=== PATIENT | female | born 1970 | race Caucasian/White ===

== ENCOUNTER 2017-10-10 12:35 | Emergency (ER) | payer OTHER ==
[~2017-10-10] VITALS: Ht 162.6 cm; Wt 66.2 kg
[~2017-10-10 12:35] MED LIST: BACTRIM DS TAB1 EACH PO; BUPROPION XL300 MG PO; BUTALB-ACETAMI1 EACH PO; CETIRIZINE HCL10 MG PO; CHLORPROMAZINE50 MG PO; LAMOTRIGINE200 MG PO; NORCO 5-325 TA1 EACH PO; TEMAZEPAM30 MG PO
[2017-10-10] MEDS ORDERED: NAPROXEN500 MG PO (16:54)
[2017-10-10] MEDS ORDERED: ONDANSETRON HCL8 MG SL (16:54)
== END 2017-10-10 17:01 | disposition home or self-care (01) ==
LOC: ED 12:35
DX: N20.0 Calculus of kidney (principal); G43.909 Migraine, unspecified, not intractable, without status migrainosus; Z90.49 Acquired absence of other specified parts of digestive tract; Z79.899 Other long term (current) drug therapy
CPT/HCPCS: 74176; 80053; 81001; 83690; 84703; 85025; 96374; 96375; 99284; J1200; J1885; J2405

== ENCOUNTER 2019-08-28 19:38 | Emergency (ER) | payer OTHER ==
[~2019-08-28] VITALS: Ht 162.6 cm; Wt 66.4 kg
[~2019-08-28 19:38] MED LIST changes: +NAPROXEN500 MG PO; +ONDANSETRON HCL8 MG SL
[2019-08-28] MEDS ORDERED: AMOXICILLIN500 MG PO (23:43)
== END 2019-08-29 00:01 | disposition home or self-care (01) ==
LOC: ED 19:38
DX: H92.03 Otalgia, bilateral (principal); J02.9 Acute pharyngitis, unspecified; Z79.899 Other long term (current) drug therapy; G43.909 Migraine, unspecified, not intractable, without status migrainosus
CPT/HCPCS: 87081; 87880; 99283

== ENCOUNTER 2020-11-12 17:07 | Emergency (ER) | payer OTHER ==
[~2020-11-12] VITALS: Ht 162.6 cm; Wt 66.4 kg
[~2020-11-12 17:07] MED LIST changes: +AMOXICILLIN500 MG PO
[2020-11-12] MEDS ORDERED: DICYCLOMINE HCL20 MG PO (18:56)
[2020-11-12] MEDS ORDERED: ZOFRAN4 MG PO (18:56)
== END 2020-11-12 19:10 | disposition home or self-care (01) ==
LOC: ED 17:07
DX: K52.9 Noninfective gastroenteritis and colitis, unspecified (principal); Z20.822 Contact with and (suspected) exposure to COVID-19; G43.909 Migraine, unspecified, not intractable, without status migrainosus
CPT/HCPCS: 80053; 83735; 84703; 85025; 99284; C9803; U0003

== ENCOUNTER 2021-02-19 20:45 | Emergency (ER) | payer OTHER ==
[~2021-02-19] VITALS: Ht 162.6 cm; Wt 61.4 kg
[~2021-02-19 20:45] MED LIST changes: +DICYCLOMINE HCL20 MG PO; +ZOFRAN4 MG PO
== END 2021-02-19 22:57 | disposition home or self-care (01) ==
LOC: ED 20:45
DX: U07.1 COVID-19 (principal)
CPT/HCPCS: 71045; 99283-25; C9803; U0003

== ENCOUNTER 2021-10-14 15:48 | Emergency (ER) | payer OTHER ==
[~2021-10-14] VITALS: Ht 162.6 cm; Wt 62.7 kg
[2021-10-14] MEDS ORDERED: OMEPRAZOLE20 MG PO (17:15)
[2021-10-14] MEDS ORDERED: ANUSOL-HC30 GM PR (19:39)
== END 2021-10-14 19:52 | disposition home or self-care (01) ==
LOC: ED 15:48
DX: K64.4 Residual hemorrhoidal skin tags (principal); R10.30 Lower abdominal pain, unspecified; G43.909 Migraine, unspecified, not intractable, without status migrainosus; Z79.899 Other long term (current) drug therapy
CPT/HCPCS: 81001; 85025; 99284

== ENCOUNTER 2022-08-10 14:23 | Emergency (ER) | payer OTHER ==
[~2022-08-10] VITALS: Ht 162.6 cm; Wt 68.1 kg
[~2022-08-10 14:23] MED LIST changes: +ANUSOL-HC30 GM PR; +OMEPRAZOLE20 MG PO
--- OUTSIDE RECORDS SUMMARY | 2022-08-10 14:26 | XMS ---
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 - Patient with suicidal and/or homicidal ideations eloped. - Patient eloped with IV in place. Details: PATIENT LWBS CRITERIA MET - [facility] CARE PROVIDERS EMMA CARVER Current PHONE: Unknown Keith has no Care Guidelines for this patient. Kwesi VISIT COUNT (12 MO.) 3 [facility]. TOTAL 3 NOTE: Visits indicate total known visits. ED/UCC VISIT TRACKING (12 MO.) 08/10/2022 14:24 [facility] [place] TYPE: Emergency COMPLAINT: - FLU SYMPTOMS 07/03/2022 16:46 [facility] [place] TYPE: Emergency COMPLAINT: - RT SIDED PAIN 10/14/2021 15:50 [facility] [place] TYPE: Emergency COMPLAINT: - ABDOMINAL PAIN, RECTAL BLEEDING DIAGNOSES: - Lower abdominal pain, unspecified - Residual hemorrhoidal skin tags - Migraine, unspecified, not intractable, without status migrainosus - Other correction (current) drug therapy INPATIENT VISIT TRACKING (12 MO.) No inpatient visits to display in this time frame [email or web address]
[2022-08-10] MEDS ORDERED: ONDANSETRON ODT8 MG PO (17:19)
== END 2022-08-10 17:39 | disposition home or self-care (01) ==
LOC: ED 14:23
DX: R11.2 Nausea with vomiting, unspecified (principal); F12.10 Cannabis abuse, uncomplicated; E86.0 Dehydration; G43.909 Migraine, unspecified, not intractable, without status migrainosus; Z79.899 Other long term (current) drug therapy
CPT/HCPCS: 36415; 71045; 80053; 81001; 83605; 83690; 85025; 87088; 87502; 93005; 93010; 96374; 96375; 99284-25; J1200; J2405; J2765; J7030; U0003

== ENCOUNTER 2023-08-04 16:33 | Emergency (ER) | payer OTHER ==
[~2023-08-04] VITALS: Ht 162.6 cm; Wt 64.9 kg
[~2023-08-04 16:33] MED LIST changes: +GABAPENTIN400 MG PO; +HYDROXYZINE HCL25 MG PO; +MELOXICAM7.5 MG PO; +ONDANSETRON ODT4 MG PO; +ONDANSETRON ODT8 MG PO; +PROTONIX40 MG PO
--- OUTSIDE RECORDS SUMMARY | 2023-08-04 16:37 | XMS ---
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 - Patient with suicidal and/or homicidal ideations eloped. - Patient eloped with IV in place. Details: PATIENT LWBS CRITERIA MET - [facility] CARE PROVIDERS -[place]- Dentist: Service Bar Cashier [facility] PHONE: [phone] EMMA CARVER Current PHONE: Unknown Keith has no Care Guidelines for this patient. E.D. VISIT COUNT (12 MO.) 4 [facility] TOTAL 4 NOTE: Visits indicate total known visits. ED/UCC VISIT TRACKING (12 MO.) 08/04/2023 16:34 [facility] [place] TYPE: Emergency COMPLAINT: - VOMITING 06/05/2023 16:17 [facility] [place] TYPE: Emergency COMPLAINT: - VOMITING DIAGNOSES: - Calculus of kidney - Cannabis use, unspecified, uncomplicated - Diarrhea, unspecified - Nausea - Nausea with vomiting, unspecified - Unspecified abdominal pain 03/30/2023 09:53 [facility] [place] [place] TYPE: Emergency COMPLAINT: - N/V/D, HEADACHE, CHILLS DIAGNOSES: - Nausea with vomiting, unspecified - Noninfective gastroenteritis and colitis, unspecified - Other senior living (current) drug therapy 08/10/2022 14:24 [facility] [place] TYPE: Emergency COMPLAINT: - FLU SYMPTOMS DIAGNOSES: - Cannabis abuse, uncomplicated - Contact with and (suspected) exposure to COVID-19 - Dehydration - Migraine, unspecified, not intractable, without status migrainosus - Nausea with vomiting, unspecified - 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
[2023-08-04 16:59] LABS: BASOPHILS 0.5 % (0-2); EOSINOPHILS 0.2 % (0-6); HEMATOCRIT 40.7 % (35.0-50.0); HEMOGLOBIN 13.7 g/dL (12.0-18.0); MCH 28.3 (27-36); MCHC 33.7 g/dl (30-36); MCV 83.9 fl (81-99); MONOCYTES 5.7 % (0-12); NEUTROPHILS 71.6 % (39-80); PLATELET COUNT 358 K/uL (140-440); RBC 4.85 M/ul (4.3-5.7); RDW 13.9 (10.5-15.0)
[2023-08-04 17:14] LABS: ALBUMIN 4.5 g/dL (3.4-5.0); ALBUMIN/GLOBULIN RATIO 1.18 (1.1-2.4); ANION GAP 20.4 (7-21); BILIRUBIN, TOTAL 0.5 ng/dL (0.2-1.0); BUN/CREATININE RATIO 28.84 (6.0-28.6); CALCIUM 10.1 mg/dL (8.5-10.1); CREATININE, SERUM 1.04 mg/dL (0.55-1.02); MAGNESIUM 1.7 mg/dL (1.8-2.4); POTASSIUM 3.4 mmol/L (3.5-5.1); PROTEIN, TOTAL 8.3 g/dL (6.4-8.2)
[2023-08-04 18:04] LABS: BILIRUBIN, URINE POSITIVE (negative); BLOOD/HGB, URINE TRACE-I (Negative); KETONE, URINE SMALL (Negative); LEUK ESTERASE, URINE NEGATIVE (negative); NITRITE, URINE NEGATIVE (negative); PH, URINE 5.5 (5-7)
[2023-08-04 18:12] LABS: BACTERIA, URINE NONE SEEN /hpf (negative); CASTS, URINE NONE SEEN \\lpf; COLLECTION TYPE, URINE CLEAN CATCH; CRYSTALS, URINE NONE SEEN (0-1+); EPITHELIAL CELLS, URINE 0 /lpf (0-1+); RED BLOOD CELLS, URINE 0-1 /hpf (0-5); REFLEX CULTURE, URINE No (No); WHITE BLOOD CELLS, URINE 0-1 /HPF (0-5)
[2023-08-04] MEDS ORDERED: ONDANSETRON ODT4 MG PO (18:12)
[2023-08-04] MEDS ORDERED: DICYCLOMINE HCL20 MG PO (18:12)
[2023-08-04 18:18] VITALS: BP 110/78
== END 2023-08-04 18:19 | disposition home or self-care (01) ==
LOC: ED 16:33
PROVIDERS: Emergency Medicine
DX: K58.0 Irritable bowel syndrome with diarrhea (principal); K21.9 Gastro-esophageal reflux disease without esophagitis; Z79.899 Other long term (current) drug therapy; Z87.891 Personal history of nicotine dependence
CPT/HCPCS: 36415; 80053; 81001; 82150; 83735; 85025; 96361; 96374; 96375; 99284-25; J1885; J2060; J2405; J7030

== ENCOUNTER 2024-01-15 11:43 | Observation (INO) | payer OTHER ==
[~2024-01-15] VITALS: Ht 162.6 cm; Wt 63.2 kg
--- OUTSIDE RECORDS SUMMARY | 2024-01-15 11:46 | XMS ---
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 PHONE: [phone] Keith has no Care Guidelines for this patient. Kwesi VISIT COUNT (12 MO.) 4 [facility] TOTAL 4 NOTE: Visits indicate total known visits. ED/UCC VISIT TRACKING (12 MO.) 01/15/2024 11:43 [facility] [place] TYPE: Emergency COMPLAINT: - SHORTNESS OF BREATH 08/04/2023 16:[address] [facility] [place] TYPE: Emergency COMPLAINT: - VOMITING DIAGNOSES: - Gastro-esophageal reflux disease without esophagitis - Irritable bowel syndrome with diarrhea - Nausea with vomiting, unspecified - Other care home (current) drug therapy - Personal history of nicotine dependence 06/05/2023 16:[address] [facility] [place] TYPE: Emergency COMPLAINT: - VOMITING DIAGNOSES: - Calculus of kidney - Cannabis use, unspecified, uncomplicated - Diarrhea, unspecified - Nausea - Nausea with vomiting, unspecified - Unspecified abdominal pain 03/30/2023 09:[address] [facility] [place] TYPE: Emergency COMPLAINT: - N/V/D, HEADACHE, CHILLS DIAGNOSES: - Nausea with vomiting, unspecified - Noninfective gastroenteritis and colitis, unspecified - Other dry cleaner helper (current) drug therapy INPATIENT VISIT TRACKING (12 MO.) No inpatient visits to display in this time frame [id number]
[2024-01-15] MEDS ORDERED: ALBUTEROL/IPRATROPIUM 3 ML NEB INH PRN (12:30)
[2024-01-15 12:36] LABS: HEMATOCRIT 38.5 % (35.0-50.0); HEMOGLOBIN 12.5 g/dL (12.0-18.0); MCH 28.1 (27-36); MCHC 32.4 g/dl (30-36); MCV 86.7 fl (81-99); PLATELET COUNT 294 K/uL (140-440); RBC 4.43 M/ul (4.3-5.7); RDW 14.1 (10.5-15.0)
[2024-01-15] MEDS ORDERED: predniSONE 20 MG TAB PO ONE (12:45)
[2024-01-15 12:58] LABS: BASOPHILS, MANUAL DIFF 4; LYMPHOCYTES, MANUAL DIFF 11; MONOCYTES, MANUAL DIFF 2; NEUTROPHILS, MANUAL DIFF 54
[2024-01-15 13:02] LABS: ALBUMIN 3.4 g/dL (3.4-5.0); ALBUMIN/GLOBULIN RATIO 0.92 (1.1-2.4); ALKALINE PHOSPHATASE 80 U/L (46-116); ALT (SGPT) 12 U/L (14-59); ANION GAP 12.9 (7-21); AST (SGOT) 15 U/L (15-37); BILIRUBIN, TOTAL 0.2 ng/dL (0.2-1.0); BUN/CREATININE RATIO 15.78 (6.0-28.6); CALCIUM 9.2 mg/dL (8.5-10.1); CARBON DIOXIDE 28 mmol/L (21-32); CHLORIDE 109 mmol/L (98-107); CREATININE, SERUM 0.95 mg/dL (0.55-1.02); GLOMERULAR FILTRATION RATE,EST 72 mL/min (>60); MAGNESIUM 1.7 mg/dL (1.8-2.4); POTASSIUM 3.9 mmol/L (3.5-5.1); PROTEIN, TOTAL 7.1 g/dL (6.4-8.2); UREA NITROGEN 15 mg/dL (7-18)
[2024-01-15 13:29] LABS: INFLUENZA B NAA NEGATIVE (NEGATIVE); RESPIRATORY SYNCYTIAL VIR NAA NEGATIVE (NEGATIVE)
[2024-01-15] MEDS ORDERED: INHALER, ASSIST DEVICES 1 EACH SPACER MISC ONE (14:30)
[2024-01-15] MEDS ORDERED: ALBUTEROL SULFATE 8 GM INH ONE (15:14)
[2024-01-15] MEDS ORDERED: PREDNISONE20 MG PO (15:34)
[2024-01-15] MEDS ORDERED: VENTOLIN HFA18 GM INH (15:34)
[2024-01-15] MEDS ORDERED: CEFTRIAXONE/SODIUM CHLORIDE 1 GM/100 ML PIGGYBACK IV SCH (16:10)
[2024-01-15] MEDS ORDERED: AZITHROMYCIN 500 MG in DEXTROSE 5% 250 ML IV SCH (16:11)
[2024-01-15] MEDS ORDERED: hydrOXYzine pamoate 25 MG CAP PO PRN (16:30)
[2024-01-15 16:51] VITALS: BP 138/88
[2024-01-15] MEDS ORDERED: ondansetron HCL 4 MG/2 ML VIAL IV PRN (17:00)
[2024-01-15] MEDS ORDERED: ACETAMINOPHEN 325 MG TAB PO PRN (17:00)
[2024-01-15 17:12] VITALS: BP 138/88
[2024-01-15 17:56] VITALS: BP 133/76
[2024-01-15] MEDS ORDERED: ALBUTEROL SULFATE 0.5% 2.5 MG/0.5 ML VIAL INH PRN (18:00)
--- NOTE | 2024-01-15 19:59 | EKG ---
[facility] [address] [facility] [place] [address] Signed Normal sinus rhythm Incomplete right bundle branch block Borderline ECG No previous ECGs available Confirmed by NENA KOWALSKI MD ([id number]) on 01/15/2024 7:58:51 PM Electronically Signed By: NENA KOWALSKI 01/15/241958 PATIENT NAME: JUAN JOSÉ NUNEZ Electrocardiogram DATE OF : 72 PHYSICIAN: NENA KOWALSKI REPORT #: [id number] REPORT IS CONFIDENTIAL AND NOT TO BE RELEASED WITHOUT AUTHORIZATION
[2024-01-15] MEDS ORDERED: ALBUTEROL/IPRATROPIUM 3 ML NEB INH SCH (20:00)
[2024-01-15] MEDS ORDERED: ALBUTEROL SULFATE 8 GM HOME.PACK INH SCH (20:00)
[2024-01-15 20:31] VITALS: BP 119/80
[2024-01-15] MEDS ORDERED: hydrOXYzine pamoate 50 MG CAP PO SCH (21:00)
[2024-01-15] MEDS ORDERED: GABAPENTIN 400 MG CAP PO SCH (21:00)
[2024-01-15] MEDS ORDERED: DICYCLOMINE HCL 10 MG CAP PO SCH (21:00)
[2024-01-15] MEDS ORDERED: MELATONIN 3 MG TAB PO PRN (21:00)
[2024-01-15 21:02] VITALS: BP 119/80
[2024-01-15] MEDS ORDERED: methylPREDNISolone SOD SUCC 40 MG/ML VIAL IV SCH (22:00)
[2024-01-16] VITALS (7 sets, daily range): BP systolic 107–139; BP diastolic 63–82
[2024-01-16 05:12] LABS: EOSINOPHILS 0.1 % (0-6); HEMATOCRIT 39.2 % (35.0-50.0); HEMOGLOBIN 12.8 g/dL (12.0-18.0); LYMPHOCYTES 10.8 % (24-44); MCH 28.3 (27-36); MCHC 32.6 g/dl (30-36); MCV 86.9 fl (81-99); MONOCYTES 1.4 % (0-12); NEUTROPHILS 86.7 % (39-80); PLATELET COUNT 314 K/uL (140-440); RBC 4.51 M/ul (4.3-5.7); RDW 14.2 (10.5-15.0)
[2024-01-16 05:21] LABS: ANION GAP 15.8 (7-21); BUN/CREATININE RATIO 15.18 (6.0-28.6); CALCIUM 9.3 mg/dL (8.5-10.1); CREATININE, SERUM 0.79 mg/dL (0.55-1.02); MAGNESIUM 1.6 mg/dL (1.8-2.4); POTASSIUM 3.8 mmol/L (3.5-5.1)
[2024-01-16] MEDS ORDERED: MAGNESIUM SULFATE 1 GM in DEXTROSE 5% 100 ML IV ONE (07:00)
[2024-01-16] MEDS ORDERED: VITAMIN D21250 MCG PO (07:39)
[2024-01-16] MEDS ORDERED: ESTRADIOL0.5 MG PO (07:41)
[2024-01-16] MEDS ORDERED: VENLAFAXINE HCL75 M1 PO (07:44)
[2024-01-16] MEDS ORDERED: ENOXAPARIN SODIUM 40 MG/0.4 ML SYR SUB-Q SCH (09:00)
[2024-01-16] MEDS ORDERED: PANTOPRAZOLE SODIUM 40 MG TABEC PO SCH (09:00)
[2024-01-16] MEDS ORDERED: GABAPENTIN 400 MG CAP PO SCH (09:00)
[2024-01-16] MEDS ORDERED: AMOX TR-K CLV1 EACH PO (10:06)
[2024-01-16] MEDS ORDERED: AZITHROMYCIN250 MG PO (10:06)
[2024-01-16] MEDS ORDERED: METHYLPREDNISOLO4 M1 PO (10:13)
[2024-01-16] MEDS ORDERED: PHARMACY RENAL DOSE ADJUSTMENT 1 DOSE MISC PO SCH (12:00)
[2024-01-19 10:18] LABS: EOSINOPHILS, MANUAL DIFF 29
[2024-03-14] MEDS ORDERED: PREDNISONE20 MG PO (18:56)
== END 2024-01-16 13:20 | disposition home or self-care (01) ==
LOC: ED 11:43 → MS 11:44
PROVIDERS: Emergency Medicine; ADMIT Internal Medicine; ATTEND Internal Medicine
DX: J44.1 Chronic obstructive pulmonary disease with (acute) exacerbation (principal); M79.7 Fibromyalgia; K21.9 Gastro-esophageal reflux disease without esophagitis; Z79.899 Other long term (current) drug therapy
CPT/HCPCS: 36415; 71045; 80048; 80053; 83735; 83880; 84484; 85025; 87502; 93005; 93010; 94640; 94664; 94760; 96365; 96366; 96367; 96372; 96375; 99285-25; A9270; G0378; J0456; J0696; J1650; J2405; J2919; J3475; J7060; J7512; U0002

== ENCOUNTER 2024-12-18 17:02 | Inpatient (IN) | payer OTHER ==
[~2024-12-18] VITALS: Ht 162.6 cm; Wt 69.5 kg
[~2024-12-18 17:02] MED LIST changes: +AMOX TR-K CLV1 EACH PO; +AZITHROMYCIN250 MG PO; +CYCLOBENZAPRINE10 MG PO; +ESTRADIOL0.5 MG PO; +LIDODERM1 EACH TOP; +MACROBID 100 M100 MG PO; +METHYLPREDNISOLO4 M1 PO; +PREDNISONE20 MG PO; +SUDOGEST30 MG PO; +VENLAFAXINE HCL75 M1 PO; +VENTOLIN HFA18 GM INH; +VITAMIN D21250 MCG PO
[2024-12-18] MEDS ORDERED: ALBUTEROL/IPRATROPIUM 3 ML NEB ONE (17:28)
[2024-12-18] MEDS ORDERED: ALBUTEROL/IPRATROPIUM 3 ML NEB INH PRN (17:45)
[2024-12-18 18:16] LABS: HEMATOCRIT 38.4 % (35.0-50.0); HEMOGLOBIN 12.9 g/dL (12.0-18.0); MCH 27.8 (27-36); MCHC 33.5 g/dl (30-36); MCV 82.9 fl (81-99); PLATELET COUNT 326 K/uL (140-440); RBC 4.63 M/ul (4.3-5.7); RDW 14.9 (10.5-15.0)
[2024-12-18 18:43] LABS: ALBUMIN 3.7 g/dL (3.4-5.0); ALBUMIN/GLOBULIN RATIO 0.93 (1.1-2.4); ANION GAP 14.2 (7-21); BANDS, MANUAL DIFF 2; BASOPHILS, MANUAL DIFF 3; BILIRUBIN, TOTAL 0.3 mg/dL (0.2-1.0); BUN/CREATININE RATIO 20.83 (6.0-28.6); CALCIUM 9.7 mg/dL (8.5-10.1); CREATININE, SERUM 0.96 mg/dL (0.55-1.02); EOSINOPHILS, MANUAL DIFF 15; LYMPHOCYTES, MANUAL DIFF 47; MAGNESIUM 1.7 mg/dL (1.8-2.4); MONOCYTES, MANUAL DIFF 6; NEUTROPHILS, MANUAL DIFF 27; POTASSIUM 4.2 mmol/L (3.5-5.1); PROTEIN, TOTAL 7.7 g/dL (6.4-8.2)
[2024-12-18] MEDS ORDERED: ALBUTEROL SULFATE 0.5% 2.5 MG/0.5 ML VIAL INH ONE (19:30)
[2024-12-18] MEDS ORDERED: ALBUTEROL/IPRATROPIUM 3 ML NEB INH ONE (19:30)
[2024-12-18] MEDS ORDERED: BUDESONIDE 0.5 MG/2 ML VIAL INH ONE (19:30)
[2024-12-18] MEDS ORDERED: methylPREDNISolone SOD SUCC 125 MG/2 ML VIAL IV ONE (19:30)
[2024-12-18 20:21] LABS: INFLUENZA B NAA NEGATIVE (NEGATIVE); RESPIRATORY SYNCYTIAL VIR NAA NEGATIVE (NEGATIVE)
[2024-12-18] MEDS ORDERED: CEFTRIAXONE SODIUM 2 GM VIAL ONE (20:41)
[2024-12-18] MEDS ORDERED: AZITHROMYCIN 500 MG in DEXTROSE 5% 250 ML IV ONE (20:45)
[2024-12-18] MEDS ORDERED: CEFTRIAXONE SODIUM 2 GM in SODIUM CHLORIDE 0.9% 100 ML IV ONE (20:45)
[2024-12-18] MEDS ORDERED: methylPREDNISolone SOD SUCC 125 MG/2 ML VIAL IV SCH (22:00)
[2024-12-18] MEDS ORDERED: ACETAMINOPHEN 325 MG TAB PO PRN (22:00)
[2024-12-18] MEDS ORDERED: ondansetron HCL 4 MG/2 ML VIAL IV PRN (22:00)
[2024-12-18] MEDS ORDERED: ALBUTEROL SULFATE 0.083% 3 ML VIAL INH PRN (22:00)
[2024-12-18 22:17] VITALS: BP 136/76
[2024-12-18] MEDS ORDERED: GABAPENTIN 400 MG CAP PO ONE (22:45)
[2024-12-18] MEDS ORDERED: hydrOXYzine pamoate 50 MG CAP PO ONE (23:00)
[2024-12-19] VITALS (9 sets, daily range): BP systolic 114–153; BP diastolic 63–90
[2024-12-19] MEDS ORDERED: ALBUTEROL/IPRATROPIUM 3 ML NEB INH SCH ×2 (02:00→08:00)
[2024-12-19 05:36] LABS: BASOPHILS 0.8 % (0-2); EOSINOPHILS 0.2 % (0-6); HEMATOCRIT 36.9 % (35.0-50.0); HEMOGLOBIN 12.5 g/dL (12.0-18.0); LYMPHOCYTES 14.3 % (24-44); MCH 27.9 (27-36); MCHC 33.9 g/dl (30-36); MCV 82.2 fl (81-99); MONOCYTES 0.6 % (0-12); NEUTROPHILS 84.1 % (39-80); PLATELET COUNT 346 K/uL (140-440); RDW 15.2 (10.5-15.0)
[2024-12-19 06:02] LABS: ALBUMIN 3.4 g/dL (3.4-5.0); ALBUMIN/GLOBULIN RATIO 0.85 (1.1-2.4); ANION GAP 13.3 (7-21); BILIRUBIN, TOTAL 0.2 mg/dL (0.2-1.0); BUN/CREATININE RATIO 19.35 (6.0-28.6); CALCIUM 9.6 mg/dL (8.5-10.1); CREATININE, SERUM 0.93 mg/dL (0.55-1.02); POTASSIUM 4.3 mmol/L (3.5-5.1); PROTEIN, TOTAL 7.4 g/dL (6.4-8.2)
[2024-12-19] MEDS ORDERED: AZITHROMYCIN 500 MG VIAL ONE (08:53)
[2024-12-19] MEDS ORDERED: CEFTRIAXONE SODIUM 2 GM VIAL ONE (08:54)
[2024-12-19] MEDS ORDERED: AZITHROMYCIN 500 MG in DEXTROSE 5% 250 ML IV SCH (09:00)
[2024-12-19] MEDS ORDERED: CEFTRIAXONE SODIUM 2 GM in SODIUM CHLORIDE 0.9% 100 ML IV SCH (09:00)
[2024-12-19] MEDS ORDERED: MAGNESIUM SULFATE 2 GM/50 ML BAG IV ONE (09:00)
[2024-12-19] MEDS ORDERED: ondansetron HCL 4 MG/2 ML VIAL ONE (13:14)
[2024-12-19] MEDS ORDERED: ACETAMINOPHEN 325 MG TAB PO PRN (13:15)
[2024-12-19] MEDS ORDERED: ondansetron HCL 4 MG/2 ML VIAL IV PRN (13:15)
[2024-12-19] MEDS ORDERED: GABAPENTIN800 MG PO (13:38)
[2024-12-19] MEDS ORDERED: VENTOLIN HFA18 GM INH (13:40)
[2024-12-19] MEDS ORDERED: CETIRIZINE HCL10 MG PO (13:41)
[2024-12-19] MEDS ORDERED: VENLAFAXINE HC150 MG PO (13:41)
[2024-12-19] MEDS ORDERED: ANGELIQ 0.25 M1 EACH PO (13:42)
[2024-12-19] MEDS ORDERED: MELOXICAM15 MG PO (15:47)
[2024-12-19] MEDS ORDERED: BENZONATATE 100 MG CAP PO PRN (18:00)
[2024-12-19] MEDS ORDERED: guaiFENesin 600 MG TABCR PO PRN (18:00)
[2024-12-19] MEDS ORDERED: BUDESONIDE 0.5 MG/2 ML VIAL INH SCH (20:00)
[2024-12-19] MEDS ORDERED: hydrOXYzine pamoate 25 MG CAP PO PRN (20:30)
[2024-12-19] MEDS ORDERED: MELATONIN 3 MG TAB PO PRN (21:00)
[2024-12-19] MEDS ORDERED: GABAPENTIN 400 MG CAP PO SCH (21:00)
[2024-12-19] MEDS ORDERED: methylPREDNISolone SOD SUCC 40 MG/ML VIAL IV SCH (21:00)
[2024-12-20] VITALS (8 sets, daily range): BP systolic 126–139; BP diastolic 67–99
[2024-12-20 05:30] LABS: BASOPHILS 0.8 % (0-2); EOSINOPHILS 0.2 % (0-6); HEMATOCRIT 40.9 % (35.0-50.0); HEMOGLOBIN 13.6 g/dL (12.0-18.0); LYMPHOCYTES 14.6 % (24-44); MCH 27.7 (27-36); MCHC 33.2 g/dl (30-36); MCV 83.5 fl (81-99); MONOCYTES 3.6 % (0-12); NEUTROPHILS 80.8 % (39-80); PLATELET COUNT 391 K/uL (140-440); RDW 15.5 (10.5-15.0)
[2024-12-20 05:57] LABS: ALBUMIN 3.9 g/dL (3.4-5.0); ALBUMIN/GLOBULIN RATIO 0.93 (1.1-2.4); ANION GAP 17.7 (7-21); BILIRUBIN, TOTAL 0.3 mg/dL (0.2-1.0); BUN/CREATININE RATIO 20.95 (6.0-28.6); CREATININE, SERUM 1.05 mg/dL (0.55-1.02); MAGNESIUM 2.4 mg/dL (1.8-2.4); POTASSIUM 4.7 mmol/L (3.5-5.1); PROTEIN, TOTAL 8.1 g/dL (6.4-8.2)
[2024-12-20] MEDS ORDERED: ALBUTEROL SULFATE 0.042% 1.25 MG/3 ML VIAL INH ONE (08:30)
[2024-12-20] MEDS ORDERED: ALBUTEROL SULFATE 0.5% 2.5 MG/0.5 ML VIAL ONE (08:42)
[2024-12-20] MEDS ORDERED: ENOXAPARIN SODIUM 40 MG/0.4 ML SYR SUB-Q SCH (09:00)
[2024-12-20] MEDS ORDERED: LACTATED RINGER'S 1,000 ML IV SCH (10:45)
[2024-12-20] MEDS ORDERED: PHARMACY RENAL DOSE ADJUSTMENT 1 DOSE MISC PO SCH (12:00)
[2024-12-20] MEDS ORDERED: ALBUTEROL/IPRATROPIUM 3 ML NEB INH SCH (12:00)
[2024-12-20] MEDS ORDERED: LOPERAMIDE HCL 2 MG CAP PO PRN (15:15)
[2024-12-21 00:55] VITALS: BP 136/80
[2024-12-21 05:35] VITALS: BP 125/69
[2024-12-21 05:39] VITALS: BP 125/69
[2024-12-21 05:51] LABS: BASOPHILS 0.8 % (0-2); EOSINOPHILS 0.1 % (0-6); HEMATOCRIT 39.8 % (35.0-50.0); HEMOGLOBIN 13.3 g/dL (12.0-18.0); LYMPHOCYTES 18.9 % (24-44); MCH 27.7 (27-36); MCHC 33.4 g/dl (30-36); MONOCYTES 4.5 % (0-12); NEUTROPHILS 75.7 % (39-80); PLATELET COUNT 366 K/uL (140-440); RDW 15.4 (10.5-15.0)
[2024-12-21 06:13] LABS: ALBUMIN 3.6 g/dL (3.4-5.0); ALBUMIN/GLOBULIN RATIO 0.95 (1.1-2.4); ANION GAP 13.1 (7-21); BILIRUBIN, TOTAL 0.3 mg/dL (0.2-1.0); BUN/CREATININE RATIO 27.27 (6.0-28.6); CALCIUM 9.6 mg/dL (8.5-10.1); CREATININE, SERUM 0.88 mg/dL (0.55-1.02); POTASSIUM 4.1 mmol/L (3.5-5.1); PROTEIN, TOTAL 7.4 g/dL (6.4-8.2)
[2024-12-21] MEDS ORDERED: BUDESONIDE 0.5 MG/2 ML VIAL INH SCH (08:00)
[2024-12-21 10:09] VITALS: BP 152/86
[2024-12-21 10:33] VITALS: BP 152/86
[2024-12-21] MEDS ORDERED: IPRAT-ALBUT 0.5-3 ML INH (13:25)
[2024-12-21] MEDS ORDERED: VENTOLIN HFA18 GM INH (13:26)
[2024-12-21] MEDS ORDERED: BENZONATATE100 MG PO (13:26)
[2024-12-21] MEDS ORDERED: MUCINEX600 MG PO (13:26)
[2024-12-21] MEDS ORDERED: PREDNISONE20 MG PO (13:28)
[2024-12-21 14:00] VITALS: BP 132/95
== END 2024-12-21 14:10 | disposition home or self-care (01) | DRG 189 ==
LOC: ED 17:02 → MS 17:03
PROVIDERS: Emergency Medicine; Family Medicine; ADMIT Family Medicine; ATTEND Family Medicine
DX: J96.01 Acute respiratory failure with hypoxia (principal); J45.901 Unspecified asthma with (acute) exacerbation; K21.9 Gastro-esophageal reflux disease without esophagitis; M79.7 Fibromyalgia; G43.909 Migraine, unspecified, not intractable, without status migrainosus; Z90.12 Acquired absence of left breast and nipple; Z90.49 Acquired absence of other specified parts of digestive tract; Z98.890 Other specified postprocedural states; Z99.81 Dependence on supplemental oxygen
CPT/HCPCS: 36415; 71045; 80053; 83735; 84100; 84484; 85025; 87502; 94640; 94644; 94667; 94668; 94761; 94762; A9270; J0456; J0696; J1650; J2405; J2919; J3475; J7060; J7121; Q0177; U0002

== ENCOUNTER 2025-04-04 12:36 | Emergency (ER) | payer OTHER ==
[~2025-04-04] VITALS: Ht 162.6 cm; Wt 72.0 kg
[~2025-04-04 12:36] MED LIST changes: +ANGELIQ 0.25 M1 EACH PO; +BENZONATATE100 MG PO; +GABAPENTIN800 MG PO; +IPRAT-ALBUT 0.5-3 ML INH; +MELOXICAM15 MG PO; +MUCINEX600 MG PO; +VENLAFAXINE HC150 MG PO
[2025-04-04] MEDS ORDERED: ondansetron HCL 4 MG/2 ML VIAL IV ONE (13:15)
[2025-04-04 13:21] LABS: BASOPHILS 0.7 % (0.1-1.2); EOSINOPHILS 0.6 % (0.7-5.8); HEMATOCRIT 39.3 % (34.1-44.9); HEMOGLOBIN 12.7 g/dL (11.2-15.7); LYMPHOCYTES 10.2 % (19.3-51.7); MCH 26.6 PG (25.6-32.2); MCHC 32.3 g/dL (32.2-35.5); MCV 82.2 fL (79.4-94.8); MONOCYTES 7.3 % (4.7-12.5); NEUTROPHILS 80.5 % (34.0-71.1); PLATELET COUNT 345 K/uL (182-369); RBC 4.78 M/uL (3.93-5.22)
[2025-04-04 13:36] LABS: ALBUMIN 3.3 g/dL (3.4-5.0); ALBUMIN/GLOBULIN RATIO 0.67 (1.1-2.4); ANION GAP 16.6 (7-21); BILIRUBIN, TOTAL 0.5 mg/dL (0.2-1.0); BUN/CREATININE RATIO 10.13 (6.0-28.6); CALCIUM 9.6 mg/dL (8.5-10.1); CREATININE, SERUM 2.17 mg/dL (0.55-1.02); POTASSIUM 3.6 mmol/L (3.5-5.1); PROTEIN, TOTAL 8.2 g/dL (6.4-8.2)
[2025-04-04 16:41] LABS: BILIRUBIN, URINE NEGATIVE (negative); BLOOD/HGB, URINE LARGE (Negative); KETONE, URINE TRACE (Negative); LEUK ESTERASE, URINE MODERATE (negative); NITRITE, URINE POSITIVE (negative); PH, URINE 5.5 (5-7)
[2025-04-04 16:51] LABS: BACTERIA, URINE 1+ /hpf (negative); CASTS, URINE NONE SEEN \\lpf; COLLECTION TYPE, URINE CLEAN CATCH; CRYSTALS, URINE NONE SEEN (0-1+); EPITHELIAL CELLS, URINE 0 /lpf (0-1+); REFLEX CULTURE, URINE Yes (No); WHITE BLOOD CELLS, URINE >50 /HPF (0-5)
[2025-04-04] MEDS ORDERED: CEFTRIAXONE SODIUM 1 GM in SODIUM CHLORIDE 0.9% 100 ML IV ONE (17:15)
[2025-04-04] MEDS ORDERED: TAMSULOSIN HCL 0.4 MG CAP PO ONE (17:15)
[2025-04-04] MEDS ORDERED: SODIUM CHLORIDE 0.9% 1,600 ML IV PRN (17:15)
[2025-04-04] MEDS ORDERED: CEFTRIAXONE SODIUM 2 GM in SODIUM CHLORIDE 0.9% 100 ML IV ONE (17:15)
[2025-04-04] MEDS ORDERED: fentaNYL citrate 100 MCG/2 ML VIAL IV ONE ×2 (17:30→18:30)
[2025-04-04 18:14] LABS: LACTIC ACID, BLOOD 0.8 mmol/L (0.4-2.0)
[2025-04-04] MEDS ORDERED: KETOROLAC TROMETHAMINE 15 MG/ML VIAL IV ONE (18:30)
[2025-04-04] MEDS ORDERED: FLOMAX0.4 MG PO (19:11)
[2025-04-04] MEDS ORDERED: HYDROCODON-ACE1 EA10 PO (19:11)
[2025-04-04] MEDS ORDERED: CEPHALEXIN500 M1 PO (19:11)
[2025-04-04] MEDS ORDERED: CEFDINIR 300 MG HOME.PACK PO ONE (20:30)
[2025-04-04] MEDS ORDERED: HYDROCODONE BIT/ACETAMINOPHEN 5/325 MG 1 TAB HOME.PACK PO ONE (20:30)
[2025-04-04 21:13] VITALS: BP 112/59
--- NOTE | 2025-04-08 12:09 | EKG ---
[facility] [address] [facility] [place] [address] Signed Normal sinus rhythm Normal ECG When compared with ECG of 15-JAN-2024 12:36, No significant change was found Confirmed by Dave Hernandez DO ([id number]) on 04/08/2025 12:09:26 PM Electronically Signed By: DAVE HERNANDEZ DO 04/08/25 1209 PATIENT NAME: JUAN JOSÉ NUNEZ IGNACIO Electrocardiogram DATE OF : 72 PHYSICIAN: DAVE HERNANDEZ DO REPORT #: [id number] REPORT IS CONFIDENTIAL AND NOT TO BE RELEASED WITHOUT AUTHORIZATION
== END 2025-04-04 21:16 | disposition home or self-care (01) ==
LOC: ED 12:36
PROVIDERS: Emergency Medicine
DX: N20.2 Calculus of kidney with calculus of ureter (principal); N17.9 Acute kidney failure, unspecified; N39.0 Urinary tract infection, site not specified; K21.9 Gastro-esophageal reflux disease without esophagitis; G43.909 Migraine, unspecified, not intractable, without status migrainosus; Z79.899 Other long term (current) drug therapy
CPT/HCPCS: 36415; 74176; 80053; 81001; 83605; 83690; 84484; 85025; 87040; 87088; 87186; 93005; 93010; 96361; 96365; 96375; 96376; 99284-25; A9270; J0696; J1885; J2405; J3010

== ENCOUNTER 2025-04-25 13:49 | Emergency (ER) | payer OTHER ==
[~2025-04-25] VITALS: Ht 162.6 cm; Wt 72.8 kg
[~2025-04-25 13:49] MED LIST changes: +CEPHALEXIN500 M1 PO; +FLOMAX0.4 MG PO; +HYDROCODON-ACE1 EA10 PO
--- OUTSIDE RECORDS SUMMARY | 2025-04-25 13:57 | XMS ---
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 PHONE: [phone] EMMA CARVER Current PHONE: Unknown RITIKA FREEDMAN Sign Hanger Current PHONE: Unknown [facility] Clinic/Center: Primary [facility] PHONE: [phone] Keith has no Care Guidelines for this patient. EBrenda VISIT COUNT (12 MO.) 5 EL Heck ([place] ANDREA) TOTAL 6 NOTE: Visits indicate total known visits. ED/UCC VISIT TRACKING (12 MO.) 04/25/2025 13:50 [facility] [place] TYPE: Emergency COMPLAINT: - LT BACK PAIN 04/19/2025 16:57 Josh [facility] [place] ([facility]) TYPE: Emergency DIAGNOSES: - Calculus of kidney - Unspecified abdominal pain - Abdominal Pain 04/04/2025 12:37 [facility] [place] TYPE: Emergency COMPLAINT: - NAUSEA DIAGNOSES: - Acute kidney failure, unspecified - Calculus of kidney with calculus of ureter - Gastro-esophageal reflux disease without esophagitis - Migraine, unspecified, not intractable, without status migrainosus - Other long-term (current) drug therapy - Unspecified abdominal pain - Urinary tract infection, site not specified 12/18/2024 17:02 [facility] [place] TYPE: Emergency COMPLAINT: - TROUBLE BREATHING 06/28/2024 17:44 [facility] [place] TYPE: Emergency COMPLAINT: - BACK PAIN DIAGNOSES: - Exposure to other specified factors, initial encounter - Gastro-esophageal reflux disease without esophagitis - Low back pain, unspecified - Other long-term (current) drug therapy - Other specified disorders of Eustachian tube, right ear - Strain of muscle, fascia and tendon of lower back, initial encounter - Urinary tract infection, site not specified 06/19/2024 16:11 [facility] [place] TYPE: Emergency COMPLAINT: - HEADACHE INPATIENT VISIT TRACKING (12 MO.) 12/19/2024 13:10 [facility] [place] TYPE: Medical Surgical COMPLAINT: - ASTHMA EXACERBATION, HYPOXIA DIAGNOSES: - Acquired absence of left breast and nipple - Acquired absence of other specified parts of digestive tract - Acute respiratory failure with hypoxia - Dependence on supplemental oxygen - Fibromyalgia - Gastro-esophageal reflux disease without esophagitis - Migraine, unspecified, not intractable, without status migrainosus - Other specified postprocedural states - Unspecified asthma with (acute) exacerbation [id number]
[2025-04-25] MEDS ORDERED: HYDROmorphone HCL 1 MG/ML SYR IV ONE (14:15)
[2025-04-25 14:28] LABS: BASOPHILS 1.1 % (0.1-1.2); EOSINOPHILS 6.3 % (0.7-5.8); LYMPHOCYTES 41.3 % (19.3-51.7); MCH 26.4 PG (25.6-32.2); MCHC 31.7 g/dL (32.2-35.5); MCV 83.4 fL (79.4-94.8); MONOCYTES 5.9 % (4.7-12.5); NEUTROPHILS 45.2 % (34.0-71.1); RBC 4.69 M/uL (3.93-5.22)
[2025-04-25 14:44] LABS: ALT (SGPT) 19.0 U/L (14-59); AST (SGOT) 15.0 U/L (15-37); GLOMERULAR FILTRATION RATE,EST 50.0 mL/min (>60); PROTEIN, TOTAL 7.7 g/dL (6.4-8.2); UREA NITROGEN 16.0 mg/dL (7-18)
[2025-04-25 15:09] LABS: BLOOD/HGB, URINE LARGE (Negative); KETONE, URINE NEGATIVE (Negative); LEUK ESTERASE, URINE SMALL (negative); NITRITE, URINE NEGATIVE (negative)
[2025-04-25] MEDS ORDERED: PHENAZOPYRIDIN200 MG PO (15:16)
[2025-04-25] MEDS ORDERED: TRAMADOL HCL50 MG PO (15:16)
[2025-04-25 15:20] LABS: BACTERIA, URINE 2+ /hpf (negative); CASTS, URINE NONE SEEN \\lpf; CRYSTALS, URINE NONE SEEN (0-1+); EPITHELIAL CELLS, URINE SQUAMOUS 1+ /lpf (0-1+); REFLEX CULTURE, URINE Yes (No)
[2025-04-25 17:10] VITALS: BP 112/80
== END 2025-04-25 17:10 | disposition home or self-care (01) ==
LOC: ED 13:49
PROVIDERS: Emergency Medicine
DX: N13.2 Hydronephrosis with renal and ureteral calculous obstruction (principal); N39.0 Urinary tract infection, site not specified; K21.9 Gastro-esophageal reflux disease without esophagitis; G43.909 Migraine, unspecified, not intractable, without status migrainosus; Z79.899 Other long term (current) drug therapy
CPT/HCPCS: 36415; 74177; 80053; 81001; 83690; 85025; 87088; 96375; 99284-25; J0696; J1171; J1200; J2405; Q9967

== ENCOUNTER 2025-08-16 14:49 | Emergency (ER) | payer OTHER ==
[~2025-08-16] VITALS: Ht 162.6 cm; Wt 73.8 kg
[~2025-08-16 14:49] MED LIST changes: +PHENAZOPYRIDIN200 MG PO; +TRAMADOL HCL50 MG PO
[2025-08-16] MEDS ORDERED: ALBUTEROL/IPRATROPIUM 3 ML NEB INH ONE (15:15)
[2025-08-16] MEDS ORDERED: predniSONE 20 MG TAB PO ONE (15:45)
[2025-08-16] MEDS ORDERED: IBUPROFEN 600 MG TAB PO ONE (15:45)
[2025-08-16] MEDS ORDERED: ALBUTEROL SULFATE 0.083% 3 ML VIAL INH ONE (16:00)
[2025-08-16] MEDS ORDERED: ALBUTEROL SULFATE 8 GM HOME.PACK INH ONE (16:45)
[2025-08-16] MEDS ORDERED: PREDNISONE20 MG PO (16:46)
[2025-08-16 17:02] VITALS: BP 116/81
--- NOTE | 2025-08-17 22:09 | EKG ---
[facility] [address] [facility] [place] [address] Signed Normal sinus rhythm Incomplete right bundle branch block Borderline ECG When compared with ECG of 04-APR-2025 20:01, No significant change was found Confirmed by Samson Lino MD () on 08/17/2025 10:09:35 PM Electronically Signed By: SAMSON LINO MD 08/17/252208 PATIENT NAME: ENRIQUEJUAN JOSÉ Electrocardiogram DATE OF : 72 PHYSICIAN: SAMSON LINO MD REPORT #: [id number] REPORT IS CONFIDENTIAL AND NOT TO BE RELEASED WITHOUT AUTHORIZATION
== END 2025-08-16 17:02 | disposition home or self-care (01) ==
LOC: ED 14:49
DX: J45.901 Unspecified asthma with (acute) exacerbation (principal); K21.9 Gastro-esophageal reflux disease without esophagitis
CPT/HCPCS: 93005; 93010; 94640; 94664; 99284; A9270; J7512